=== PATIENT | female | born 1955 | race Caucasian/White ===

== ENCOUNTER 2019-03-15 13:26 | Emergency (ER) | payer OTHER, BC ==
[~2019-03-15] VITALS: Ht 160 cm; Wt 79.4 kg
[~2019-03-15 13:26] MED LIST: GABA300 PO; IBUP800 PO
[2019-03-15] MEDS ORDERED: TRAM50 PO (13:45)
[2019-03-15] MEDS ORDERED: Mobic15 MG PO (13:45)
[2019-03-15] MEDS ORDERED: Ventolin/Prove6.7 GM INH (13:45)
[2019-03-15] MEDS ORDERED: Voltaren100 GM TOP (14:38)
[2019-03-15] MEDS ORDERED: Norco 5-325 Ta1 EACH PO (14:38)
[2019-03-15] MEDS ORDERED: CYCL10 PO (14:38)
== END 2019-03-15 14:49 | disposition home or self-care (01) ==
LOC: ER 13:26
DX: G89.29 Other chronic pain (principal); M54.5 Low back pain; Z88.8 Allergy status to other drugs, medicaments and biological substances; Z79.899 Other long term (current) drug therapy
CPT/HCPCS: 96372; 99283-25; J1885